=== PATIENT | male | born 1955 | race Caucasian/White ===

== ENCOUNTER 2016-04-12 16:49 | Inpatient (IN) | payer BC ==
[~2016-04-12] VITALS: Ht 172.7 cm; Wt 73.5 kg
[2016-04-12] MEDS ORDERED: ASPIRIN 300 MG SUPP RECTAL ONE (17:56)
[2016-04-12] MEDS ORDERED: BISACODYL 10 MG SUPP RECTAL PRN (19:25)
[2016-04-12] MEDS ORDERED: MAG HYDROX 30 ML UDC PO PRN (19:25)
[2016-04-12] MEDS ORDERED: ACETAMINOPHEN 325 MG TAB PO PRN (19:25)
[2016-04-12] MEDS ORDERED: SALINE FLUSH 10 ML FLUSH PRN (19:25)
[2016-04-12] MEDS ORDERED: ALU/MAG/SIM 30 ML UDC PO PRN (19:25)
[2016-04-12] MEDS ORDERED: ONDANSETRON 4 MG VIAL IV PRN (19:25)
[2016-04-12] MEDS ORDERED: BISACODYL EC 5 MG TAB PO PRN (19:25)
[2016-04-12] MEDS ORDERED: TEMAZEPAM 15 MG CAP PO PRN (19:25)
[2016-04-12] MEDS: SALINE FLUSH 10 ML FLUSH SCH (20:00)
[2016-04-12 20:19] VITALS: BP_SYST 162; RESP 18; TEMP 98.5
[2016-04-12 20:20] VITALS: Ht 172.7 cm; Wt 73.5 kg
[2016-04-12 23:25] VITALS: RESP 18
[2016-04-12 23:52] VITALS: BP_SYST 95; RESP 18; TEMP 97.6
[2016-04-13 03:58] VITALS: BP_SYST 105; RESP 18; TEMP 97.2
[2016-04-13] MEDS: SODIUM CHLORIDE 0.9% FLUSH BAG 500 ML IV SCH ×2 (06:36→19:58)
[2016-04-13] MEDS: SALINE FLUSH 10 ML FLUSH SCH ×2 (09:01→21:30)
[2016-04-13] MEDS: ENOXAPARIN 40 MG/0.4 ML SYR SUBQ SCH (09:02)
[2016-04-13] MEDS ORDERED: DIAZEPAM 5 MG TAB PO PRN (12:10)
[2016-04-13] MEDS ORDERED: GLUCAGON 1 MG VIAL IM PRN (12:15)
[2016-04-13] MEDS ORDERED: DEXTROSE 50% SYRINGE 50 ML IV PRN (12:15)
[2016-04-13 12:26] VITALS: BP_SYST 99; RESP 18; TEMP 98.3
[2016-04-13] MEDS: LEVETIRACETAM 250 MG TAB PO SCH ×2 (13:40→21:20)
[2016-04-13] MEDS: CLOPIDOGREL 75 MG TAB PO SCH (13:40)
[2016-04-13] MEDS: OXYBUTYNIN 5 MG TAB PO SCH ×2 (13:40→21:30)
[2016-04-13] MEDS: LEVOTHYROXINE 0.088 MG TAB PO SCH (13:41)
[2016-04-13] MEDS: GLIMEPIRIDE 2 MG TAB PO SCH (13:41)
[2016-04-13] MEDS: **NOTE TO NURSE XX SCH ×2 (14:18→19:57)
[2016-04-13 16:43] VITALS: BP_SYST 95; RESP 18; TEMP 98.1
[2016-04-13] MEDS: CEPHALEXIN 500 MG CAP PO SCH ×2 (18:35→21:20)
[2016-04-13 19:52] VITALS: BP_SYST 101; RESP 18; TEMP 98.5
[2016-04-13] MEDS ORDERED: MISSING DOSE XX ONE (20:10)
[2016-04-13] MEDS ORDERED: TAMSULOSIN 0.4 MG CAP PO SCH (21:00)
[2016-04-13] MEDS ORDERED: Atorvastatin 40 MG TAB PO SCH (21:00)
[2016-04-13] MEDS ORDERED: MIRTAZAPINE 15 MG TAB PO SCH (21:00)
[2016-04-13] MEDS ORDERED: SITAGLIPTIN 50 MG TAB PO SCH (21:00)
[2016-04-13] MEDS ORDERED: PAROXETINE HCL 20 MG TAB PO SCH (21:00)
[2016-04-13 23:41] VITALS: BP_SYST 101; RESP 18; TEMP 98.2
[2016-04-14 04:15] VITALS: BP_SYST 105; RESP 18; TEMP 97.3
[2016-04-14] MEDS: LEVOTHYROXINE 0.088 MG TAB PO SCH (06:07)
[2016-04-14] MEDS: DIAZEPAM 5 MG TAB PO PRN ×2 (06:52→16:42)
[2016-04-14] MEDS: **NOTE TO NURSE XX SCH (07:48)
[2016-04-14] MEDS: SALINE FLUSH 10 ML FLUSH SCH (07:57)
[2016-04-14] MEDS: CLOPIDOGREL 75 MG TAB PO SCH (08:31)
[2016-04-14] MEDS: GLIMEPIRIDE 2 MG TAB PO SCH (08:31)
[2016-04-14] MEDS: OXYBUTYNIN 5 MG TAB PO SCH (08:31)
[2016-04-14] MEDS: CEPHALEXIN 500 MG CAP PO SCH ×3 (08:31→16:41)
[2016-04-14] MEDS: LEVETIRACETAM 250 MG TAB PO SCH (08:31)
[2016-04-14] MEDS: ENOXAPARIN 40 MG/0.4 ML SYR SUBQ SCH (08:32)
[2016-04-14 09:02] VITALS: BP_SYST 95; RESP 16; TEMP 98
[2016-04-14 11:57] VITALS: BP_SYST 110; RESP 18; TEMP 98.2
[2016-04-14 17:01] VITALS: BP_SYST 111; RESP 16; TEMP 98.3
[2016-04-14 18:48] VITALS: BP_SYST 111; RESP 16; TEMP 98.3
[2016-04-15] MEDS ORDERED: MOVANTIK 25 MG PO SCH (09:00)
== END 2016-04-14 19:10 | disposition home or self-care (01) | DRG 100 ==
LOC: ENRESERVDT → ENRESERVTM → ER 16:49 → EMR 18:30 → PCU2 19:42 → OBSVTOIN 04-14 16:44 → ENPENDDIS 04-14 16:44
PROVIDERS: ADMIT Internal Medicine; ATTEND Internal Medicine
CPT/HCPCS: 70450; 70551; 71010; 93005; 94799; 95819; 99220; 99233

== ENCOUNTER 2016-04-18 20:06 | Emergency (ER) | payer BC | END 2016-04-18 23:50 | disposition home or self-care (01) | LOC: ER 20:06 | CPT/HCPCS: 36415; 74176; 80053; 81001; 82550; 85025; 87077; 87088; 87186 ==